=== PATIENT | female | born 1965 | race African-American/Black ===

== ENCOUNTER 2016-08-07 09:26 | Emergency (ER) | payer OTHER ==
[2016-08-07 09:35] VITALS: BP 160/100; PULSE 75; TEMP 97.3; BMI 25.0
[2016-08-07] MEDS ORDERED: IBUPROFEN 400 MG TABLET (FP) PO ONE ×3 (09:44→09:58)
--- NOTE | 2016-08-07 09:46 | PDOC ---
History of Present Illness - General Chief Complaint: Pain Stated Complaint: LT BREAST PAIN Time Seen by Provider: 08/07/16 09:40 History Source: Patient - History of Present Illness Timing/Duration: other (1 month) Associated Symptoms: denies: fever/chills, malaise Past History - Past Medical History Allergies/Adverse Reactions: Allergies Allergy/AdvReac Type Severity Reaction Status Date / Time No Known Allergies Allergy Verified 08/07/16 09:30 Home Medications: Ambulatory Orders NK [No Known Home Medication] 02/07/15 Asthma: Yes (mild intermittent) Suicide Attempt (Hx): No - Immunization History Immunization Up to Date: Yes - Psycho/Social/Smoking Cessation Hx Anxiety: No Suicidal Ideation: No Smoking History: Never smoked Have you smoked in the past 12 months: No Information on smoking cessation initiated: No Hx Alcohol Use: No Drug/Substance Use Hx: No Substance Use Type: None Review of Systems - Review of Systems Constitutional: No: Chills, Fever, Malaise, Unexplained wgt Loss Respiratory: No: Shortness of Breath Cardiac (ROS): No: Chest Pain, Palpitations *Physical Exam - Vital Signs Last Vital Signs Temp Pulse Resp BP Pulse Ox 97.3 F L 75 16 160/100 100 08/07/16 09:30 08/07/16 09:30 08/07/16 09:30 08/07/16 09:30 08/07/16 09:30 - Physical Exam General Appearance: Yes: Appropriately Dressed. No: Apparent Distress HEENT: positive: Normal Voice Neck: positive: Supple. negative: Lymphadenopathy (R), Lymphadenopathy (L) Respiratory/Chest: positive: Lungs Clear, Normal Breath Sounds, Other (Breast symmetric w/ minimal ttp to lateral aspect of L brest w/ no mass palpated to breast and no skin changes, nipple discharge or axillary lymphadenopathy). negative: Respiratory Distress Cardiovascular: positive: Regular Rate, S1, S2 Integumentary: positive: Dry, Warm Neurologic: positive: Fully Oriented, Alert, Normal Mood/Affect Medical Decision Making - Medical Decision Making 08/07/16 09:45 51 yo F, no sig hx, p/w L breast pain 1 month. Patient states pain located to lateral aspect of left breast, unable to describe and mostly present while she' s at work at [employer]. Patient denies any mass, nipple discharge or unexplained weight loss. No history of breast disease and no significant family history. Last mammogram 2 years ago was normal. States she is scheduled for another mammogram this year. Patient well-appearing and stable with minimal tenderness to palpation to lateral aspect of left breast with no mass with no skin changes, mass, nipple discharge or axillary lymphadenopathy. Pain, possibly musculoskeletal. Will discharge with pain control and referral to PMD for follow-up mammogram *DC/Admit/Observation/Transfer Diagnosis at time of Disposition: Breast pain - Discharge Dispostion Disposition: HOME Condition at time of disposition: Good - Referrals Referrals: Dirk Tello MD [Primary Care Provider] - - Patient Instructions Printed Discharge Instructions: DI for Breast Pain (Mastalgia) Additional Instructions: Take motrin as needed and follow up with your PMD regarding scheduling mammogram
== END 2016-08-07 10:14 | disposition home or self-care (01) ==
LOC: JERFT 09:26
DX: N64.4 Mastodynia (principal)
CPT/HCPCS: 99281-25

== ENCOUNTER 2016-08-10 11:02 | Emergency (ER) | payer OTHER ==
[2016-08-10 11:37] VITALS: BP 155/83; PULSE 70; TEMP 98; BMI 27.4
--- NOTE | 2016-08-10 12:03 | PDOC ---
History of Present Illness - General Chief Complaint: Cold Symptoms Stated Complaint: BODY LOUIE Time Seen by Provider: 08/10/16 11:52 History Source: Patient Exam Limitations: No Limitations - History of Present Illness Initial Comments: 08/10/16 12:03 Patient here with complaints of cough, chills, fevers, runny nose, general body aches 2 days. 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 Thinks may have the influenza. Has asthma and has been using her albuterol with minimal resolved Timing/Duration: reports: changing over time, getting worse Severity: reports: mild, moderate Associated Symptoms: reports: fever/chills, nasal congestion Past History - Travel Traveled outside of the country in the last 30 days: No Close contact w/someone who was outside of country & ill: No - Past Medical History Allergies/Adverse Reactions: Allergies Allergy/AdvReac Type Severity Reaction Status Date / Time No Known Allergies Allergy Verified 08/07/16 09:30 Home Medications: Ambulatory Orders Oseltamivir Phosphate [Tamiflu -] 75 mg PO BID #10 capsule 08/10/16 Asthma: Yes (mild intermittent) Suicide Attempt (Hx): No - Immunization History Immunization Up to Date: Yes - Psycho/Social/Smoking Cessation Hx Anxiety: No Suicidal Ideation: No Smoking History: Never smoked Have you smoked in the past 12 months: No Information on smoking cessation initiated: No Hx Alcohol Use: No Drug/Substance Use Hx: No Substance Use Type: None Respiratory Specific PMHX - Complaint Specific PMHX Angina: No Bronchitis: No Pneumonia: No Pulmonary Embolus: No TB (Tuberculosis): No Review of Systems - Review of Systems Able to Perform ROS?: Yes Is the patient limited Luxem[place]ish proficient: Yes Constitutional: Yes: Symptoms Reported, See HPI, Fever, Malaise, Night Sweats HEENTM: Yes: Symptoms Reported, See HPI, Nose Congestion Respiratory: Yes: Symptoms reported, Cough ABD/GI: No: Symptoms Reported : No: Symptoms Reported Musculoskeletal: Yes: Symptoms Reported, See HPI, Muscle Pain Integumentary: Yes: Symptoms Reported All Other Systems: Reviewed and Negative *Physical Exam - Vital Signs Last Vital Signs Temp Pulse Resp BP Pulse Ox 98 F 70 20 155/83 98 08/10/16 11:36 08/10/16 11:36 08/10/16 11:36 08/10/16 11:36 08/10/16 11:36 - Physical Exam General Appearance: Yes: Appropriately Dressed, Apparent Distress HEENT: positive: KELSEY, TMs Normal, Pharynx Normal Neck: positive: Supple, Lymphadenopathy (R), Lymphadenopathy (L) Respiratory/Chest: positive: Normal Breath Sounds (but coarse), Wheezing. negative: Lungs Clear Gastrointestinal/Abdominal: positive: Normal Bowel Sounds, Soft. negative: Tender Extremity: positive: Normal Capillary Refill, Normal Inspection Integumentary: positive: Normal Color, Dry, Pale Neurologic: positive: mycologist II-XII NML intact, Fully Oriented, Alert, Normal Mood/ Affect, Normal Response, Motor Strength 10/27 Progress Note - Progress Note Progress Note: Upper respiratory infection, probable influenza. Will treat with Tamiflu *DC/Admit/Observation/Transfer Diagnosis at time of Disposition: Upper respiratory infection Qualifiers: URI type: unspecified viral URI Qualified Code(s): J06.9 - Acute upper respiratory infection, unspecified; B97.89 - Other viral agents as the cause of diseases classified elsewhere - Discharge Dispostion Disposition: HOME Condition at time of disposition: Stable Admit: No - Patient Instructions Printed Discharge Instructions: DI for Viral Upper Respiratory Infection -- Adult Additional Instructions: Rest, drink lots of fluids: Teas, water, soups, Pedialyte Saltwater gargles Steamy showers/seem to face break up mucus Old-fashioned treatments help! Avoid contact with others until fevers and cough resolved as this is very contagious Lots of handwashing and good hygiene Continue [id number] medications for symptomatic relief Tylenol or Motrin for fever and pain Take all of Tamiflu as directed: 1 tab every 12 hours for 5 days Followup with private physician in one to 2 days as needed or if worsening Return to emergency department for worsened symptoms, fevers, dehydration Influenza takes between 5 and 7 days for resolution To not participate in any activity, work, or school until fevers and cough are gone for at least one day - Post Discharge Activity Work/School Note: Back to Work
== END 2016-08-10 12:06 | disposition home or self-care (01) ==
LOC: JERFT 11:02
DX: J06.9 Acute upper respiratory infection, unspecified (principal); B97.89 Other viral agents as the cause of diseases classified elsewhere
CPT/HCPCS: 99281-25

== ENCOUNTER 2017-02-25 06:18 | Emergency (ER) | payer OTHER ==
[2017-02-25] MEDS ORDERED: ALBUTEROL SO4 2.5/IPRATROPIUM 0.5 INH SOL 3 ML VIAL.NEB. NEB ONE ×2 (06:47→06:55)
--- NOTE | 2017-02-25 07:39 | PDOC ---
History of Present Illness - General Chief Complaint: Asthma Stated Complaint: WHEEZING, DIFFICULTY BREATHING Time Seen by Provider: 02/25/17 07:09 History Source: Patient Exam Limitations: No Limitations - History of Present Illness Initial Comments: 02/25/17 07:19 51-year-old female with history of asthma since childhood presents the ED with complaints of wheezing and difficulty breathing since awakening this morning. Patient states normally uses her albuterol inhaler but states the medication ran out and her nebulizer machine is broken. Patient denies recent travel, recent illness, fever, cough, chills, palpitations, chest pain, smoking history , or history of intubations. Timing/Duration: reports: just prior to arrival Severity: reports: mild Possible Cause: Yes: occasional episodes Associated Symptoms: reports: shortness of breath, wheezing Past History - Travel Traveled outside of the country in the last 30 days: No Close contact w/someone who was outside of country & ill: No - Past Medical History Allergies/Adverse Reactions: Allergies Allergy/AdvReac Type Severity Reaction Status Date / Time No Known Allergies Allergy Verified 02/25/17 06:53 Home Medications: Ambulatory Orders NK [No Known Home Medication] 02/25/17 Asthma: Yes (mild intermittent) Suicide Attempt (Hx): No - Immunization History Immunization Up to Date: Yes - Psycho/Social/Smoking Cessation Hx Anxiety: No Suicidal Ideation: No Smoking History: Never smoked Have you smoked in the past 12 months: No Hx Alcohol Use: No Drug/Substance Use Hx: No Substance Use Type: None Patient Lives Alone: No Lives with/in: spouse/SO Respiratory Specific PMHX - Complaint Specific PMHX Angina: No Bronchitis: No Pneumonia: No Pulmonary Embolus: No TB (Tuberculosis): No Review of Systems - Review of Systems Able to Perform ROS?: Yes Constitutional: No: Symptoms Reported HEENTM: No: Symptoms Reported Respiratory: Yes: Shortness of Breath, Wheezing Cardiac (ROS): No: Symptoms Reported ABD/GI: No: Symptoms Reported Musculoskeletal: No: Symptoms Reported Integumentary: No: Symptoms Reported Neurological: No: Symptoms reported *Physical Exam - Vital Signs Last Vital Signs Temp Pulse Resp BP Pulse Ox 98.1 F 58 L 18 140/87 100 02/25/17 06:50 02/25/17 06:50 02/25/17 06:50 02/25/17 06:50 02/25/17 06:50 - Physical Exam General Appearance: Yes: Nourished, Appropriately Dressed. No: Apparent Distress HEENT: positive: Pharynx Normal. negative: Pale Conjunctivae Neck: positive: Normal Thyroid, Supple Respiratory/Chest: positive: Lungs Clear, Normal Breath Sounds. negative: Respiratory Distress, Accessory Muscle Use, Rhonchi, Wheezing Cardiovascular: positive: Regular Rhythm, Regular Rate. negative: Murmur Gastrointestinal/Abdominal: positive: Soft. negative: Tenderness Extremity: positive: Normal Capillary Refill. negative: Pedal Edema Integumentary: positive: Normal Color, Warm, Moist Neurologic: positive: Motor Strength 5/5 (ambulatory) ED Treatment Course - Medications Given in the ED: ED Medications Discontinued Medications Generic Name Dose Route Start Last Admin Trade Name Freq PRN Reason Stop Dose Admin Albuterol/Ipratropium 1 amp 02/25/17 06:55 02/25/17 07:07 Duoneb - NEB 02/25/17 06:56 1 amp NOW ONE Administration Medical Decision Making - Medical Decision Making 02/25/17 07:22 Patient with history of asthma presents to the ED with complaints of wheezing all mild shortness of breath upon awakening this morning. Patient states did not have a rescue inhaler and or nebulizer machine was broken. Patient arrives here initially with mild scattered inspiratory wheeze and was given a DuoNeb prior to my arrival. On my examination patient had no auscultated abnormal breath sounds or noted to be in any distress. Patient's O2 sat was 100% upon my arrival. plan is to reassess and if no acute findings, I will discharge home with refill to nebulizer machine and albuterol inhaler. 02/25/17 07:43 Reassessment. Patient states was clear to bases without use of assessing muscles or acute findings. Patient's O2 sat again that 100%. Will discharge patient home with refills as previously mentioned. *DC/Admit/Observation/Transfer Diagnosis at time of Disposition: Mild asthma exacerbation - Discharge Dispostion Disposition: HOME Condition at time of disposition: Improved - Referrals Referrals: Geremias Tello MD [Primary Care Provider] - - Patient Instructions Printed Discharge Instructions: Asthma -- Adult Additional Instructions: Please carry your albuterol inhaler with you at all times and if no improvement after 2 doses may use the nebulizer as discussed. If symptoms return and or do not improve please go to the ED. Otherwise follow-up with your primary care physician.
[2017-02-25 08:10] VITALS: BMI 27.4
[2017-02-25 08:14] VITALS: BP 140/80; PULSE 64; TEMP 97.8
== END 2017-02-25 08:14 | disposition home or self-care (01) ==
LOC: JER 06:18
PROC: 3E0F7GC Introduction of Other Therapeutic Substance into Respiratory Tract, Via Natural or Artificial Opening (ICD-10-PCS; principal; 2017-02-25)
DX: J45.21 Mild intermittent asthma with (acute) exacerbation (principal)
CPT/HCPCS: 99282-25